=== PATIENT | male | born 1990 | race African-American/Black ===

== ENCOUNTER 2018-06-10 03:48 | Inpatient (IN) ==
[2018-06-10 04:31] LABS: Basophils % 0.3 % (0.0-0.8); Eosinophils # 0.4 10*3/uL (0.0-0.87); Eosinophils % 4.5 % (0.00-10.9); Hematocrit 43.8 VOL% (42.0-52.0); Hemoglobin 13.5 GM/DL (14.0-18.0); Immature Granulocytes % 0.4 %; Immature Granulocytes Absolute 0.04 #; Lymphocytes # 2.6 10*3/uL (1.4-4.0); Lymphocytes % 28.9 % (21.2-54.2); Mean Corpuscular HGB Conc 30.8 GM/DL (32-36); Mean Corpuscular Hemoglobin 29 PG (27-34); Mean Corpuscular Volume 92.8 FL (87-102); Mean Platelet Volume 9.1 FL (9.6-12.0); Monocytes # 0.8 10*3/uL (0.11-0.8); Monocytes % 8.8 % (1.7-12.7); Neutrophils # 5.2 10*3/uL (1.4-7.4); Neutrophils % 57.1 % (38.7-73.9); Platelet Count 219 T/CUMM (130-400); Red Blood Count 4.72 MC/CUMM (3.8-5.5); Red Cell Distribution Width 14.2 % (9.3-17.3); White Blood Count 9.1 T/CUMM (4-12)
[2018-06-10 04:53] LABS: Alanine Aminotransferase 45 U/L (16-61); Alkaline Phosphatase 66 U/L (45-117); Aspartate Amino Transferase 60 U/L (0-37); Bilirubin,Total < 0.39 MG/DL (0.2-1.0); Blood Urea Nitrogen 13 MG/DL (7-18); Calcium 8.6 MG/DL (8.5-10.1); Glucose 76 MG/DL (74-106); Potassium 3.9 MMOL/L (3.5-5.1); Sodium 143 MMOL/L (136-145); Total Protein 6.7 G/DL (6.4-8.3)
[2018-06-10 05:01] LABS: Barbiturates Screen,Urine Negative (Negative); Benzodiazepines Screen,Urine Negative (Negative); Cannabinoid Screen,Urine Positive (Negative); Opiate Screen,Urine Negative (Negative); Phencyclidine Screen,Urine Negative (Negative)
[2018-06-10] MEDS ORDERED: ACETAMINOPHEN 325 MG TABLET PO PRN (14:05)
[2018-06-10] MEDS ORDERED: ONDANSETRON 4 MG/2 ML VIAL IM PRN (14:05)
[2018-06-10] MEDS: DIAZEPAM 5 MG TABLET PO SCH (20:13)
[2018-06-11] MEDS: PANTOPRAZOLE 40 MG TABLET PO SCH (08:29)
[2018-06-11] MEDS: DIAZEPAM 5 MG TABLET PO SCH ×4 (08:29→20:32)
[2018-06-11] MEDS ORDERED: HALOPERIDOL 5 MG/ML AMP IM PRN ×2 (16:23→17:09)
[2018-06-12] MEDS: DIAZEPAM 5 MG TABLET PO SCH ×2 (08:04→13:07)
[2018-06-12] MEDS: PANTOPRAZOLE 40 MG TABLET PO SCH (08:04)
[2018-06-12 11:59] VITALS: BP 113/61
== END 2018-06-12 16:01 | disposition home or self-care (01) | DRG 897 ==
LOC: EDBD → EDUNIT# → N.ED 03:48 → SUATTDRO 12:11 → N.EDINP 12:15 → N.ICU 13:42
PROVIDERS: ADMIT Internal Medicine; ATTEND Internal Medicine